=== PATIENT | male | born 1985 | race Hispanic/Latino ===

== ENCOUNTER 2020-12-27 15:20 | Emergency (ER) | payer SELFPAY ==
--- NOTE | ~2020-12-27 | XR_ITS ---
XR finger 3rd LT min 2V DATE: 12/27/2020 15:46 INDICATION: Circular saw injury. Distal third digit laceration TECHNIQUE: 4 views COMPARISON: None FINDINGS: There is a soft tissue laceration of the distal medial aspect of the third digit. No fracture, dislocation, periosteal reaction or bone destruction or radiopaque foreign body is evide nt. IMPRESSION: Soft tissue laceration; no bony injury Reviewed, dictated and finalized at location A. OWING MANAGER
[2020-12-27 15:22] VITALS: BP 142/76; PULSE 65; RESP 18; TEMP 36.3; O2SAT 100
--- NOTE | 2020-12-27 16:30 | ED.UPPEXIN ---
HPI - Extremity Injury (Upper) General Chief Complaint: Extremity Injury, Upper Stated Complaint: L middle finger Time Seen by Provider: 12/27/20 15:34 Source: patient Mode of arrival: ambulatory Limitations: no limitations History of Present Illness HPI narrative: This is a 35 year old male that presents to the ER for left third finger laceration sustained just prior to arrival. Patient was using circular saw and sustained laceration. Reports it involves the nail. He is unsure of his last tetanus vaccine. Denies decreased ROM or numbness. Related Data Allergies Allergy/AdvReac Type Severity Reaction Status Date / Time No Known Allergies Allergy Verified 12/27/20 15:22 Review of Systems Review of Systems: Narrative: CONSTITUTIONAL: Denies fever SKIN: Reports laceration NEUROLOGIC: Denies numbness All systems reviewed & are unremarkable except as noted in HPI and below PMFSH Past Medical History Medical History (Updated 12/27/20 @ 17:48 by Elza Osullivan PA-C) No active medical problems Social History Social History (Updated 12/27/20 @ 16:33 by Elza Osullivan PA-C) Smoking status: Never smoker Gender identity (if verbalized by the patient): Male Exam Narrative: Exam Narrative: GENERAL: Well-appearing, well-nourished, and in no acute distress. HEAD: Normocephalic, atraumatic. EYES: EOMI. EXTREMITIES: Normal range of motion. No edema or obvious deformity. Left third finger distal phalanx with 1cm irregular laceration into subcutaneous tissue involving the distal portion of the nail SKIN: Warm, dry, no rash. NEURO: No focal deficits. Alert and oriented x3. PSYCH: Normal mood and affect Course Vital Signs Vital signs: Vital Signs Temperature 97.4 F L 12/27/20 15:22 Pulse Rate 65 12/27/20 15:22 Respiratory Rate 18 12/27/20 15:22 Blood Pressure 142/76 H 12/27/20 15:22 Pulse Oximetry 100 12/27/20 15:22 Temperature 97.4 F L 12/27/20 15:22 Pulse Rate 65 12/27/20 15:22 Respiratory Rate 18 12/27/20 15:22 Blood Pressure 142/76 H 12/27/20 15:22 Pulse Oximetry 100 12/27/20 15:22 Procedures Laceration Laceration 1: Date: 12/27/20 Time: 17:47 Site: hand Side (If applicable): left Size (cm): 1 Description: irregular Depth: simple, single layer Local Anesthetic: lidocaine 1% Amount of anesthesia used (mL): 4 Pre-repair: irrigated and minor debridement (some portion of the distal nail was removed) ====== Skin Level ====== Skin layer closed with: nylon Size (cm): 4-0 Number of sutures: 1 Technique: simple, interrupted ====== Subcutaneous Layer ====== ====== Muscle Layer ====== ====== Tendon Layer ====== MDM - Extremity Injury (Upper) MDM Narrative Medical decision making narrative: Patient presents emergency department for laceration to left third finger sustained just prior to arrival. Laceration did involve a portion of the distal nail. Wound was irrigated. There was 1 part of the wound that I was able to close with a suture. Otherwise the wound will mostly have to heal by secondary intention. Patient was updated on tetanus. Left third finger x-ray is without acute osseous abnormalities. He was instructed on wound care. Will be given plastics for follow-up. He was given warnings to return to the ER Imaging Data Radiologist's impression: ITS Impressions Finger X-Ray 12/27/20 15:48 IMPRESSION: Soft tissue laceration; no bony injury Critical Care Time Critical Care Time Critical Care Time: No Discharge Plan Discharge Clinical Impression: Laceration Patient Disposition: Home, Self-Care Condition: Stable Instructions: Antibiotic Form, Care For Your Stitches (ED), Laceration (ED) Additional Instructions: Return to the emergency department if you experience fever, redness or swelling of your wound, abnormal drainage from
[2020-12-27] MEDS: TETANUS,DIPHTHERIA,AC PERTUSSIS ADULT (0.5 ML) BOOSTRIX IM (16:32)
[2020-12-27 17:56] VITALS: BP 138/70; PULSE 67; RESP 15; O2SAT 100
== END 2020-12-27 17:57 | disposition home or self-care (01) ==
PROVIDERS: Emergency Provider Family Medicine
DX: S61.313A Laceration without foreign body of left middle finger with damage to nail, initial encounter (principal); Z23 Encounter for immunization; W31.2XXA Contact with powered woodworking and forming machines, initial encounter
CPT/HCPCS: 12001; 73140; 90471; 90715; 99283